=== PATIENT | male | born 1995 | race Caucasian/White ===

== ENCOUNTER 2017-01-04 17:42 | Emergency (ER) | payer MEDICAID | END 2017-01-04 19:01 | disposition home or self-care (01) | LOC: D.ER 17:42 | DX: S63.501A Unspecified sprain of right wrist, initial encounter (principal); W19.XXXA Unspecified fall, initial encounter; Y93.89 Activity, other specified; Y92.219 Unspecified school as the place of occurrence of the external cause ==